=== PATIENT | female | born 1990 | race American Indian/Alaskan Native ===

== ENCOUNTER 2018-01-16 08:27 | Emergency (ER) | payer SELFPAY ==
[2018-01-16 08:33] VITALS: BP 114/78
--- NOTE | 2018-01-16 09:43 | Emergency Department Report ---
[facility] Chief Complaint: Eye Problems Stated Complaint: PINK EYE Time Seen by Provider: 01/16/18 09:35 Duration: Today Side: Right Severity: moderate (63/10 itching) Symptoms: Yes Eye Itching (right eye), Yes Eye Redness (right eye), Yes Purulent Drainage (right eye), No Eye Pain (itching, Matting), No Mucous Drainage, No Blurred Vision, No Preceding URI, No H/O Allergic Rhinitis, No Contact Lens Use, No Trauma, No Fever, No Headache Other History: 23-year-old female came to the emergency room report that she woke up this morning with right eye itching and close shut with crusting. She reports she has some mucus coming from her right eye. Denies any trauma. Denies any pain. Severity itching is 3 out of 10. Immunizations up-to-date including tetanus. Denies contact lens use, denies foreign body sensation. Nothing makes itching better and nothing makes it worse and she has not tried any medication to relieve symptoms of itching. Denies light sensitivity. Pain is 0/10. ED Review of Systems ROS: Stated complaint: PINK EYE Other details as noted in HPI Constitutional: denies: chills, fever Eyes: eye discharge, other (reports itching to eyes. Denies foreign body sensation). denies: eye pain, vision change ENT: denies: ear pain, throat pain Respiratory: denies: cough, shortness of breath, wheezing Cardiovascular: denies: chest pain, palpitations Gastrointestinal: denies: nausea, vomiting Genitourinary: denies: discharge Musculoskeletal: denies: back pain, joint swelling, arthralgia Skin: pruritus (right eye). denies: rash, lesions Neurological: denies: headache ED Past Medical Hx - Past Medical History Previous Medical History?: No Hx Hypertension: No Hx Diabetes: No Hx Deep Vein Thrombosis: No Hx Renal Disease: No Hx Sickle Cell Disease: No Hx Seizures: No Hx Asthma: No Hx HIV: No - Surgical History Past Surgical History?: No - Family History Family history: hypertension - Social History Smoking Status: Never Smoker Substance Use Type: None Other Social History: lives with friend - Medications Home Medications: Home Medications Medication Instructions Recorded Confirmed Last Taken Type Gentamicin 0.3% Ophth Soln 2 drops OD Q8H 7 Days #1 bottle 01/16/18 Unknown Rx [facility] Exam - Exam General: Vital signs noted. No distress. Alert and acting appropriately. This is a 27-year-old female well-nourished well-developed in no acute distress. Eye Exam: Right Injection, Both EOMI, Neither Chemosis, Neither Abnormal Pupil, Neither Eye Foreign Body, Neither Lid Foreign Body, Neither Mucous Discharge, Neither Purulent Discharge, Neither Corneal Edema, Neither Photophobia HEENT: No Nasal Congestion, No Pharyngeal Erythema Remainder of HEENT: Normal Lungs: Yes Clear Lung Sounds (CTAB), No Good Air Exchange, No Wheezes, No Stridor, No Cough, No Nasal Flaring, No Retractions, No Use of Accessory Muscles Exam: Visual acuity: 20/40 right eye, 20/40 left eye. Funduscopic exam :normal findings ED Course Vital Signs 01/16/18 08:30 Temperature 98.2 F Pulse Rate 100 H Respiratory 20 Rate Blood Pressure 114/78 O2 Sat by Pulse 98 Oximetry - Reevaluation(s) Reevaluation #1: 01/16/18 10:38 Patient stable throughout ED stay ED Medical Decision Making - Medical Decision Making ED course: Diagnosis: 1: Conjunctivitis , Rt eye -Gentamicin ophthalmic solution - instructed to return to work 2 days after starting eyedrops. - instruction given on conjunctivitis -Follow up with lead [employer] developer and referral given -No concerns for corneal abrasion this patient did not have eye injury, no contacts involved. She doesn't have any foreign body sensation. Patient woke up with redness, itchy eye and matting Visual acuity testing done Patient is stable and discharged home with family members stable condition with prescription for gentamicin ophthalmic solution. She was understanding discharge instructions diagnosis and need to follow up with lead [employer] developer and her primary care physician. Critical care attestation.: If time is entered above; I have spent that time in minutes in the direct care of this critically ill patient, excluding procedure time. ED Disposition Clinical Impression: Conjunctivitis Qualifiers: Conjunctivitis type: acute Acute conjunctivitis type: unspecified Laterality: right Qualified Code(s): H10.31 - Unspecified acute conjunctivitis, right eye Disposition: - TO HOME OR SELFCARE Is pt being admited?: No Does the pt Need Aspirin: No Condition: Stable Instructions: Conjunctivitis (ED) Additional Instructions: Use antibiotic eyedrop was instructed Follow up with Primary care and lead ruby [employer] developer in 2-3 days Prescriptions: Gentamicin 0.3% Ophth Soln 2 drops OD Q8H 7 Days #1 bottle Referrals: PRIMARY CARE, [Primary Care Provider] - 3-5 Days DEBBY ELLISON MD [Staff Physician] - 24 Hours Forms: Accompanied Note, Work/School Release Form(ED)
== END 2018-01-16 11:01 | disposition home or self-care (01) ==
LOC: ED 08:27
DX: H10.31 Unspecified acute conjunctivitis, right eye (principal)
CPT/HCPCS: 99282